=== PATIENT | male | born 1965 | race Caucasian/White ===

== ENCOUNTER 2017-06-20 11:25 | Emergency (ER) | payer OTHER ==
[~2017-06-20] VITALS: Ht 185.4 cm; Wt 90.5 kg
[2017-06-20 11:49] LABS: BASOPHIL COUNT 0.1 K/uL (0-0.1); EOSINOPHIL (%) 0.9 % (0-5); EOSINOPHIL COUNT 0.1 K/uL (0-0.3); HEMATOCRIT 49.5 % (38.0-50.0); IMMATURE GRANULOCYTE (%) 1.3 % (0.0-0.7); IMMATURE GRANULOCYTE COUNT 0.1 K/uL; INSTRUMENT ABS NEUTROPHIL CT 7.3 K/uL; LYMPHOCYTE COUNT 2.4 K/uL (1.0-2.8); MCH 29.7 PG (29.0-34.0); MCHC 30.9 G/DL (30.0-36.0); MCV 95.9 FL (86-99); MEAN PLAT.VOLUME 11.3 uM^3 (9.0-12.4); MONOCYTE COUNT 0.3 K/uL (0-0.8); NEUTROPHIL (%) 70.3 % (45-76); NEUTROPHIL COUNT 7.3 K/uL (1.8-6.4); PLATELET COUNT 269 K/uL (156-360); RBC DIS.WIDTH-CV 11.9 % (11.8-14.6); RBC DIS.WIDTH-SD 42.3 % (39-53); RED BLOOD COUNT 5.16 M/uL (4.00-5.50); WHITE BLOOD COUNT 10.3 K/uL (4.1-10.2)
[2017-06-20 11:58] LABS: CHLORIDE 104 mEq/L (99-109); POTASSIUM 4.7 mEq/L (3.7-5.4); SODIUM 142 mEq/L (136-147)
[2017-06-20 12:00] LABS: GLUCOSE 145 mg/dL (70-99)
[2017-06-20 12:01] LABS: ANION GAP 32 MEQ/L (2-14)
[2017-06-20 12:04] LABS: GFR ESTIMATE (CALCULATED) 42 mL/min/
[2017-06-20 12:05] LABS: UREA NITROGEN (BUN) 18 mg/dL (9-23)
[2017-06-20 14:06] LABS: BASE EXCESS -3.8 mEq/L (-3 to +3); BICARBONATE 21.5 mEq/L (22-26); CARBOXY HGB 1.7 % (0-5); COMMENTS - BLOOD GASES C+; METHEMOGLOBIN 1.2 % (0-1.5); PCO2 39 mm Hg (35-45); PO2 101 mm Hg (80-100); SITE LR; pH 7.35 (7.35-7.45)
[2017-06-20 14:07] LABS: DEVICE NC; O2 FLOW 2 L/MIN; TOTAL RESP RATE 16 resp/min
[2017-06-20 15:55] VITALS: BP 105/67
== END 2017-06-20 16:19 | disposition short-term general hospital (02) ==
LOC: EME 11:25
PROVIDERS: Emergency Medicine
DX: G40.909 Epilepsy, unspecified, not intractable, without status epilepticus (principal)
CPT/HCPCS: 36600; 70450; 71010; 80048; 82803; 85025; 93005; 99281; 99285; J1953; J2060; J2250; J7030; J7050

== ENCOUNTER 2017-10-06 13:42 | Emergency (ER) | payer OTHER ==
[~2017-10-06] VITALS: Ht 190.5 cm; Wt 92.5 kg
[2017-10-06 14:02] LABS: BASOPHIL (%) 0.4 % (0-1); EOSINOPHIL (%) 0.2 % (0-5); HEMATOCRIT 44.5 % (38.0-50.0); HEMOGLOBIN 15.7 G/DL (12.5-16.6); IMMATURE GRANULOCYTE (%) 0.3 % (0.0-0.7); LYMPHOCYTE (%) 8.2 % (15-42); LYMPHOCYTE COUNT 0.9 K/uL (1.0-2.8); MCHC 35.3 G/DL (30.0-36.0); MCV 87.9 FL (86-99); MONOCYTE (%) 6.1 % (3-12); MONOCYTE COUNT 0.7 K/uL (0-0.8); NEUTROPHIL (%) 84.8 % (45-76); NEUTROPHIL COUNT 9.5 K/uL (1.8-6.4); PLATELET COUNT 217 K/uL (156-360); RBC DIS.WIDTH-CV 12.4 % (11.8-14.6); RED BLOOD COUNT 5.06 M/uL (4.00-5.50); WHITE BLOOD COUNT 11.2 K/uL (4.1-10.2)
[2017-10-06 14:12] LABS: ALBUMIN 4.2 g/dL (3.2-4.8); CHLORIDE 104 mEq/L (99-109); POTASSIUM 4.3 mEq/L (3.7-5.4); SODIUM 138 mEq/L (136-147)
[2017-10-06 14:15] LABS: GLUCOSE 99 mg/dL (70-99); TOTAL PROTEIN 7.6 g/dL (6.4-8.3)
[2017-10-06 14:17] LABS: TOTAL BILIRUBIN 0.6 mg/dL (0.0-1.0)
[2017-10-06 14:18] LABS: ALKALINE PHOSPHATASE 65 IU/L (3-129); SERUM ETHYL ALCOHOL < 10 mg/dL
[2017-10-06 14:19] LABS: CREATININE 1.1 mg/dL (0.6-1.3); GFR ESTIMATE (CALCULATED) > 59 mL/min/ (58.99-99999)
[2017-10-06 14:20] LABS: AST (GOT) 17 IU/L (2-34); UREA NITROGEN (BUN) 16 mg/dL (9-23)
[2017-10-06 14:21] LABS: ALT (GPT) 22 IU/L (3-49)
[2017-10-06 14:22] LABS: CREATINE KINASE 127 IU/L (1-294); TOTAL CK 127 IU/L (1-294)
[2017-10-06 14:24] LABS: TROP-I INTERPRETATION NEGATIVE; TROPONIN-I < 0.01 ng/mL (0.0-0.30)
[2017-10-06] MEDS ORDERED: NEURONTIN300 MG PO (14:25)
[2017-10-06] MEDS ORDERED: OXCARBAZEPINE300 MG PO (14:26)
[2017-10-06 14:27] LABS: CK-MB 2.2 ng/mL (0.0-4.9); CKMB RELATIVE INDEX 1.7 (0.0-3.9)
[2017-10-06] MEDS ORDERED: TYLENOL REGULA325 MG PO (14:29)
[2017-10-06] MEDS ORDERED: FOSAMAX70 MG PO (14:29)
[2017-10-06] MEDS ORDERED: ZOCOR20 MG PO (14:30)
[2017-10-06] MEDS ORDERED: ANTACID CHEWAB1 EACH PO (14:31)
[2017-10-06] MEDS ORDERED: FISH OIL OMEGA1 EAC2 PO (14:32)
[2017-10-06] MEDS ORDERED: ERGOCALCIF50000 UNIT PO (14:33)
[2017-10-06 16:41] LABS: AMPHETAMINE NEGATIVE (500 ng/mL); BARBITURATES NEGATIVE (200 ng/mL); BENZODIAZEPINES NEGATIVE (150 ng/mL); BUPRENORPHINE NEGATIVE (10 ng/mL); COCAINE NEGATIVE (150 ng/mL); METHADONE NEGATIVE (200 ng/mL); METHAMPHETAMINE NEGATIVE (500 ng/mL); OPIATES (MORPHINE) NEGATIVE (100 ng/mL); OXYCODONE NEGATIVE (100 ng/mL); PHENCYCLIDINE NEGATIVE (25 ng/mL); PROPOXYPHENE NEGATIVE (300 ng/mL); THC CANNABINOIDS NEGATIVE (50 ng/mL); TRICYCLIC ANTIDEPRESSANTS NEGATIVE (300 ng/mL)
[2017-10-06 19:05] VITALS: BP 122/90
== END 2017-10-06 19:15 | disposition short-term general hospital (02) ==
LOC: EME 13:42
PROVIDERS: Emergency Medicine
DX: G40.909 Epilepsy, unspecified, not intractable, without status epilepticus (principal)
CPT/HCPCS: 70450; 80053; 82550; 82553; 84484; 85025; 93005; 99281; 99285; G0480; J1953; J2060; J7030; J7050